=== PATIENT | male | born 1965 | race African-American/Black ===

== ENCOUNTER → 2020-07-25 07:53 | Outpatient (BNVA) | payer OTHER, SELFPAY | PROVIDERS: Visit Provider Nurse Practitioner Gerontology | DX: Z13.89 Encounter for screening for other disorder (principal) | CPT/HCPCS: Q3014 ==

== ENCOUNTER → 2020-10-24 07:43 | Outpatient (BNVA) | payer OTHER, SELFPAY | PROVIDERS: PCP Physician Assistant Medical; Visit Provider Nurse Practitioner Gerontology | CPT/HCPCS: 99212 ==

== ENCOUNTER 2020-11-29 09:08 | Outpatient (REF) | payer OTHER, SELFPAY ==
[2020-11-29 09:47] LABS: Estimated Average Glucose 206 mg/dL; Hemoglobin A1c % 8.8 %
[2020-11-29 10:05] LABS: Alanine Aminotransferase 23 U/L (0-40); Albumin Level 3.9 g/dL (3.5-5.0); Alkaline Phosphatase 97 U/L (39-117); Anion Gap 12 (12-20); Aspartate Amino Transferase 22 U/L (5-37); Bilirubin Total 1.8 mg/dL (0.0-1.0); Blood Urea Nitrogen 14 mg/dL (9-16); Calcium 8.8 mg/dL (8.4-10.2); Carbon Dioxide 28 mmol/L (22-29); Chloride 104 mmol/L (96-108); Cholesterol 185 mg/dL; Estimated Glomerular Filt Rate > 60; Glucose Fasting 290 mg/dL (60-99); HDL Cholesterol 35 mg/dL; LDL Cholesterol Calculated 132 mg/dl; Potassium 4.6 mmol/L (3.3-5.1); Sodium 139 mmol/L (135-145); Total Protein 6.3 g/dL (6.5-8.0); Triglycerides 93 mg/dL
[2020-11-29 10:29] LABS: Vitamin D 25-OH Total 5.3 ng/mL (>30)
[2020-11-29 11:20] LABS: Creatinine Urine 186.28 mg/dL; Microalbum/Creatinine Ratio Ur 198.6 ug/mg cr
[2020-11-30 15:49] LABS: Vitamin B12 334 pg/mL (200-900)
[2020-11-30 18:16] LABS: C Peptide 0.14 ng/mL (0.80-3.85)
== END 2020-11-29 09:09 | disposition home or self-care (01) ==
LOC: HO.LAB 09:08
PROVIDERS: Visit Provider Nurse Practitioner Gerontology
DX: E11.65 Type 2 diabetes mellitus with hyperglycemia (principal); Z79.4 Long term (current) use of insulin
CPT/HCPCS: 36415; 80053; 80061; 82043; 82306; 82607; 83036; 84681

== ENCOUNTER → 2021-01-23 07:27 | Outpatient (BNVA) | payer OTHER, SELFPAY | PROVIDERS: Visit Provider Nurse Practitioner Gerontology | CPT/HCPCS: Q3014 ==

== ENCOUNTER 2021-05-16 07:16 | Outpatient (REF) | payer OTHER, SELFPAY ==
[2021-05-16 10:50] LABS: Vitamin D 25-OH Total 5.5 ng/mL (>30)
[2021-05-16 10:51] LABS: Vitamin D 25-OH Total 5.5 ng/mL (>30)
[2021-05-16 10:56] LABS: Cholesterol 192 mg/dL; HDL Cholesterol 35 mg/dL; LDL Cholesterol Calculated 134 mg/dl; Triglycerides 115 mg/dL
[2021-05-17 05:31] LABS: LDL Cholesterol Direct 134 mg/dL (<100)
== END 2021-05-16 07:17 | disposition home or self-care (01) ==
LOC: HO.10HDL 07:16
PROVIDERS: Visit Provider Nurse Practitioner Gerontology
DX: E11.42 Type 2 diabetes mellitus with diabetic polyneuropathy (principal); E55.9 Vitamin D deficiency, unspecified
CPT/HCPCS: 36415; 80061; 82306; 82947; 83721; 99212

== ENCOUNTER → 2021-05-19 08:13 | Outpatient (BNVA) | payer OTHER, SELFPAY | PROVIDERS: Visit Provider Registered Nurse Diabetes Educator | DX: I10 Essential (primary) hypertension (principal); E08.65 Diabetes mellitus due to underlying condition with hyperglycemia; Z79.4 Long term (current) use of insulin; Z79.84 Long term (current) use of oral hypoglycemic drugs | CPT/HCPCS: 99211 ==

== ENCOUNTER → 2021-05-26 07:33 | Outpatient (BNVA) | payer OTHER, SELFPAY | PROVIDERS: Visit Provider Registered Nurse Diabetes Educator | DX: Z90.410 Acquired total absence of pancreas (principal); E08.65 Diabetes mellitus due to underlying condition with hyperglycemia; Z79.4 Long term (current) use of insulin | CPT/HCPCS: 99211 ==

== ENCOUNTER → 2021-06-09 14:11 | Outpatient (BNVA) | payer OTHER, SELFPAY | PROVIDERS: Visit Provider Registered Nurse Diabetes Educator | DX: K85.90 Acute pancreatitis without necrosis or infection, unspecified (principal); E08.65 Diabetes mellitus due to underlying condition with hyperglycemia; Z79.4 Long term (current) use of insulin; Z90.410 Acquired total absence of pancreas | CPT/HCPCS: Q3014 ==

== ENCOUNTER → 2021-10-04 07:09 | Outpatient (BNVA) | payer OTHER, SELFPAY | PROVIDERS: Visit Provider Nurse Practitioner Gerontology | DX: E11.42 Type 2 diabetes mellitus with diabetic polyneuropathy (principal); E08.65 Diabetes mellitus due to underlying condition with hyperglycemia; I10 Essential (primary) hypertension; E78.5 Hyperlipidemia, unspecified; E55.9 Vitamin D deficiency, unspecified; Z90.410 Acquired total absence of pancreas; Z79.4 Long term (current) use of insulin | CPT/HCPCS: 82947; 99212 ==

== ENCOUNTER → 2021-10-18 12:36 | Outpatient (BNVA) | payer OTHER, SELFPAY | PROVIDERS: Visit Provider Registered Nurse Diabetes Educator | DX: Z87.19 Personal history of other diseases of the digestive system (principal); E08.42 Diabetes mellitus due to underlying condition with diabetic polyneuropathy; E08.65 Diabetes mellitus due to underlying condition with hyperglycemia; Z79.4 Long term (current) use of insulin; Z90.410 Acquired total absence of pancreas | CPT/HCPCS: 99211 ==